=== PATIENT | male | born 1965 | race Caucasian/White ===

== ENCOUNTER 2017-12-19 15:28 | Emergency (ER) | payer BC ==
[~2017-12-19] VITALS: Ht 165.1 cm; Wt 82.0 kg
[2017-12-19 15:32] VITALS: BP 156/95
[2017-12-19] MEDS ORDERED: LIDOcaine 1% 30ml preserv. free vial IJ ONE (15:50)
[2017-12-19] MEDS ORDERED: TETanus/Pertussis (Acell)/Diphther VAC/PF (Tdap-Adult) 0.5ml syringe IM ONE (15:50)
[2017-12-19] MEDS ORDERED: HYDROcodone/acetaminophen 10/325mg tab PO ONE (15:50)
[2017-12-19] MEDS ORDERED: BUPIVAcaine/PF 2.5 mg/ml (0.25%) 30ml vial IJ ONE (15:50)
[2017-12-19] MEDS ORDERED: amox tr/potassium clavulanate 875/125mg TAB PO ONE (15:55)
[2017-12-19] MEDS ORDERED: AMOX-422 PO (17:28)
[2017-12-19] MEDS ORDERED: HYDR-569 PO (17:28)
[2017-12-19] MEDS ORDERED: NAPR-56 PO (17:28)
== END 2017-12-19 18:02 | disposition home or self-care (01) ==
LOC: ER 15:28
DX: S61.210A Laceration without foreign body of right index finger without damage to nail, initial encounter (principal); I10 Essential (primary) hypertension; Z88.6 Allergy status to analgesic agent; Z87.891 Personal history of nicotine dependence; W31.89XA Contact with other specified machinery, initial encounter; Y93.89 Activity, other specified; Y92.89 Other specified places as the place of occurrence of the external cause; Y99.8 Other external cause status
CPT/HCPCS: 26770; 73140; 90471; 90715; 99284; A6446; A6449; J3490

== ENCOUNTER 2017-12-29 13:20 | Outpatient (CLI) | payer BC ==
[~2017-12-29 13:20] MED LIST: HYDR-569 PO; NAPR-56 PO
[2017-12-29 13:23] VITALS: BP 149/106
== END 2017-12-29 14:21 | disposition home or self-care (01) ==
LOC: ORTHO 13:20
PROVIDERS: ATTEND Nurse Practitioner Family
DX: S63.290A Dislocation of distal interphalangeal joint of right index finger, initial encounter (principal); M19.041 Primary osteoarthritis, right hand; I10 Essential (primary) hypertension; K21.9 Gastro-esophageal reflux disease without esophagitis; X58.XXXA Exposure to other specified factors, initial encounter; Y93.89 Activity, other specified; Y92.89 Other specified places as the place of occurrence of the external cause; Y99.8 Other external cause status
CPT/HCPCS: 73140; 99213